=== PATIENT | male | born 1955 | race Caucasian/White ===

== ENCOUNTER → 2016-04-24 | Outpatient (CLI) | payer OTHER ==
[~2016-04-24] VITALS: Ht 188 cm; Wt 113.4 kg
[~2016-04-24] MED LIST: ACCUPRIL40 MG PO; AKWA TEARS EYE15 ML OPHTHALMIC; ATORVASTATIN CA20 MG PO; CARVEDILOL25 MG PO; COLACE100 MG PO; COREG CR20 MG PO; COUMADIN 10MG T10 M1 PO; COUMADIN 5 MG TA5 M1 PO; ENOXAPARIN150 MG/1 M SUBQ; HYDROCODON-ACE1 EAC7 PO; HYDROCODONE-AP1 EAC6 PO; NORFLEX100 MG PO; OXYCODON-ACETA1 EAC1 PO; OXYCODONE-ACET1 EACH PO; QUINAPRIL HCL40 MG PO; TRAMADOL100 MG PO
--- NOTE | ~2016-04-24 | HPC ---
[facility] [address] [place] [address] PAIN MANAGEMENT CONSULTATION Name: MAURICE SIU Room #: REG CLDani CoombsLeannEgdar.#: [id number] Admission: 04/24/16 Attend Phys: Anthony Velasquez MD Discharge: Date of : 57 Report #: [id number] THIS REPORT FOR: //name// CC: Anthony Tsai DO DATE OF SERVICE: 04/24/2016 Followup visit for cervical pain with radiculopathy, right upper extremity and occipital headaches. The patient was last seen on 01/10/2016 when he received an epidural steroid injection at C6-C7. He reports that for nearly 3 months, the pain was gone. His percent pain relief average over 3 months was 85%. He was able returned to most of his normal activities almost pain free. Beginning about 3-4 weeks ago, he began experiencing neck pain once again down the right arm as before into the shoulders, does not extend quite so far. It also radiates up in the occiput. He has an upcoming trip planned and made an appointment to come in today for a repeat epidural injection. It has now been over 3 months since his last injection. MEDICATIONS: Carvedilol, atorvastatin, Quinapril and he has been placed on Coumadin, but that was discontinued a week ago. I do not have an INR, so we cannot proceed today with an epidural injection. He was sent to the laboratory for a stat INR, but unfortunately in our hospital stat is 2 hours. He does not have any pain medication requested that I provided him with some medication and I have agreed to provide him with oxycodone 5/325. I have given him 30 tablets to be taken 1-2 tablets as needed for severe pain. MRI was reviewed, which shows disk bulging at C5-C6 with partial CSF effacement and mild foraminal narrowing there. There is also central disk bulge at C6-C7 without significant central stenosis. At 4-5, there is a broad-based disk bulging with facet hypertrophy causing central ventral CSF effacement and a right neural foraminal narrowing. In addition to his MRI report, I reviewed his x-ray films. He was injected at the level of C7-T1 with excellent spread within the epidural space bilaterally. This was such a helpful injection I would not consider injecting him elsewhere. We would proceed with a repeat injection. PHYSICAL EXAMINATION: He is pleasant, alert and oriented. No signs of depression, anxiety or overmedication. VITAL SIGNS: Blood pressure 143/93, heart rate 84, respirations 16, he is [address] [place] [address] PAIN MANAGEMENT CONSULTATION Name: MAURICE SIU Room #: REG [facility].#: [id number] Admission: 04/24/16 Attend Phys: Anthony Velasquez MD Discharge: Date of : 57 Report #: [id number] feet 2 and 250 pounds with a BMI of 32.1. EXTREMITIES: Examination of the neck reveals good cervical range of motion. Pain is exacerbated by neck extension. Lateral tilt exacerbates pain to the right and also shoots pain up into the occiput and into the shoulder. Pain does not radiate much below the deltoid muscle group in the right arm. Strength is judged to be normal and deltoid, biceps, triceps and mechanical specialist strength on each arm. Sensation is intact. Deep tendon reflexes are trace, biceps, triceps and brachioradialis. Reflexes in the lower extremities are also 1+ at knee and ankle with no evidence of hyperreflexia. IMPRESSION: Cervicalgia with radiculopathy. Pain is recurring in the right upper extremity, does follow C6 distribution. PLAN: Repeat epidural steroid injection today under fluoroscopic guidance. Unfortunately, we were unable to proceed with an injection today due to the delay in receiving his results from [facility]. He was given an appointment for tomorrow and will see my partner, Dr. Robby Iqbal, who has agreed to provide his injection for him. He will call the clinic in the morning if his INR is above 1.5, we will appose bony injection till next week. Potential risks improve benefits of the procedure were explained to the patient, he was anxious to proceed today and will see Dr. Iqbal tomorrow. <ELECTRONICALLY SIGNED> By: Anthony Velasquez MD 05/24/16 1130 1720 0034 Anthony Velasquez MD /nt
[2016-04-24 15:03] VITALS: BP 143/93
[2016-04-24 18:00] LABS: PROTIME 10.2 Seconds (9.3-11.4)
== END | disposition home or self-care (01) ==
LOC: PAIN 07:23
PROVIDERS: Anesthesiology Pain Medicine
DX: M54.12 Radiculopathy, cervical region (principal); M54.81 Occipital neuralgia; I10 Essential (primary) hypertension; F17.210 Nicotine dependence, cigarettes, uncomplicated

== ENCOUNTER → 2016-04-25 | Outpatient (CLI) | payer OTHER ==
[~2016-04-25] VITALS: Ht 188 cm; Wt 113.4 kg
--- NOTE | ~2016-04-25 | HPC ---
[facility] [address] [place] [address] PAIN MANAGEMENT CONSULTATION Name: MAURICE SIU Room #: REG CLDani Qiu#: [id number] Admission: 04/25/16 Attend Phys: Robby Iqbal DO Discharge: Date of : 57 Report #: [id number] THIS REPORT FOR: //name// CC: uQinn Iqbal DATE OF SERVICE: 04/25/2016 HISTORY OF PRESENT ILLNESS: The patient is a very pleasant 60-year-old gentleman being treated for symptomatic cervical radiculopathy; typically, a patient of Dr. Anthony Velasquez. He has done well with the episodic epidural injections. Last injection was about 4 months ago, greater than 50% relief for several months. Pain has begun to recur, primarily right upper neck, posterior occiput, shoulder and paresthesia into the arm. He has been off his Coumadin for several days. INR is 1.0. ASSESSMENT: Symptomatic cervical radiculopathy. PLAN: The patient was told to resume Coumadin tomorrow. Follow up with Dr. Anthony Velasquez as needed. Subjective pain score is 5/10. Vital signs stable. <ELECTRONICALLY SIGNED> By: Robby Iqbal DO 04/28/16 0917 1022 1059 Robby Iqbal, DO /nt
--- NOTE | ~2016-04-25 | O ---
[facility] [place] [address] [place] [address] OPERATIVE REPORT Name: MAURICE SIU Room #: REG CL Dary.#: [id number] Admission: 04/25/16 Attend Phys: Robby Iqbal DO Discharge: Date of : 57 Report #: [id number] THIS REPORT FOR: //name// CC: Quinn Iqbal DATE OF SERVICE: 04/25/2016 NAME OF THE PROCEDURE: Cervical epidural injection under fluoroscopy. ASSESSMENT: Cervical Radiculopathy FLUOROSCOPY TIME: Under 15 seconds. DESCRIPTION OF PROCEDURE: After written and informed consent was obtained including risk of dural puncture, spinal cord trauma, paralysis and increased pain, the patient was taken to the fluoroscopy suite and placed in the prone position, with appropriate abdominal bolstering, neck was flexed, palms under the thighs. Skin was prepped with ChloraPrep. Sterile draping was applied. Skin wheal with 1% Xylocaine was raised. A 22-gauge 3-1/2 inch epidural Tuohy needle was placed via a midline approach at the C7-T1 interspace, advanced under biplanar fluoroscopy using continuous loss of resistance. With appropriate loss of resistance at the expected depth on lateral view, the glass loss of resistance syringe was disconnected. A low volume extension tubing was connected to the needle and a 5 mL syringe. Negative aspiration for cerebrospinal fluid or blood was noted. A 1 mL of Omnipaque was injected which showed spread within the epidural space on biplanar fluoroscopy. This was followed with 80 mg of triamcinolone plus 1 mL of 1.5% preservative Xylocaine. Needle was withdrawn to the interspinous ligament, 0.5 mL of Xylocaine was used to flush the needle. The needle was then completely withdrawn. The area was cleansed. Band-Aid was applied. The patient was allowed to move off the procedure table and ambulated to the recovery room, monitored for an appropriate period of time, discharged in good and stable condition. <ELECTRONICALLY SIGNED> By: Robby Iqbal DO 04/28/16 0917 1022 1204 Robby Iqbal DO /nt
[2016-04-25 10:04] VITALS: BP 137/85
== END ==
LOC: PAIN 07:00
DX: M54.12 Radiculopathy, cervical region (principal); I10 Essential (primary) hypertension; F17.210 Nicotine dependence, cigarettes, uncomplicated

== ENCOUNTER → 2016-08-28 | Outpatient (CLI) | payer OTHER ==
[~2016-08-28] VITALS: Ht 188 cm; Wt 114.5 kg
--- NOTE | ~2016-08-28 | HPC ---
[facility] [place] [address] [place] [address] PAIN MANAGEMENT CONSULTATION Name: MAURICE SIU Room #: REG CLI Dary.#: [id number] Admission: 08/28/16 Attend Phys: Anthony Velasquez MD Discharge: Date of : 57 Report #: [id number] THIS REPORT FOR: //name// CC: Anthony Tsai DATE OF SERVICE: 08/28/2016 Followup visit for cervical radiculopathy on the right. The patient returns to pain clinic today for repeat cervical epidural injection. We provided these injections for him on several occasions, the first was on 01/10/2016, the second on 04/25/[address] Iqbal. I was unable to provide the injection for him today before due to inability to obtain an INR prior to his visit. He is on Coumadin and discontinued it for today's injection 5 days in anticipation. We have done an INR today already which is 1.2. He is okay to go forward with another injection and has been preauthorized. Pain is an 8/10 in his neck, right-sided, behind the shoulder. He describes it as intermittent numbness and tingling also into the right hand that follows the C6-C7 distribution. Pain started at the end of March, he did get some relief with the injection in April. He is not interested in surgery and is hopeful we can continue to provide with the use of pain relief with intermittent injections. PHYSICAL EXAMINATION: On physical exam today, his pain score is an 8. VITAL SIGNS: Blood pressure is 127/78, heart rate is 81. EXTREMITIES: Cervical range of motion is limited in rotational and lateral tilt. He has tenderness in the arm. Deep tendon reflexes are 2+ biceps, triceps and brachioradialis. No hyperreflexia in the lower extremities. 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 IMPRESSION: Cervical radiculopathy on the right. RECOMMENDATIONS: Cervical epidural injection under fluoroscopic guidance. DESCRIPTION OF PROCEDURE: The patient was taken to the fluoroscopic suite for treatment, was placed prone, skin was prepped with ChloraPrep. Skin was anesthetized over the C6-C7 interspace. A 20-gauge Tuohy epidural needle was advanced in the epidural space, the right of midline. No blood or CSF was aspirated. Good loss of resistance was obtained. I then injected 1 mL of Omnipaque, which demonstrated bilateral spread of dye into the epidural space, it was then followed by 3 mL of 0.5% lidocaine mixed with 80 mg of triamcinolone. He tolerated the procedure well and was taken to recovery room for short observation and discharged with a followup visit scheduled on an as needed basis. [address] [address] PAIN MANAGEMENT CONSULTATION Name: SALBADORMAURICE SAN Room #: REG EMILY Qiu#: [id number] Admission: 08/28/16 Attend Phys: Anthony Velasquez MD Discharge: Date of : 57 Report #: [id number] I also provided for him a small prescription of hydrocodone 5/325, #20 tablets to be used as needed for severe breakthrough pain. The opioid crisis was discussed, importance of safeguarding medication discussed. We will keep an eye on his medication. By: 1733 0250 Anthony Velasquez MD /nt
[2016-08-28 11:20] LABS: INR 1.2
[2016-08-28 13:56] VITALS: BP 126/81
== END ==
LOC: PAIN 07-31 12:09
PROVIDERS: Anesthesiology Pain Medicine
DX: M54.12 Radiculopathy, cervical region (principal); I10 Essential (primary) hypertension

== ENCOUNTER → 2016-12-18 | Outpatient (CLI) | payer OTHER ==
[~2016-12-18] VITALS: Ht 188 cm; Wt 117.9 kg
--- NOTE | ~2016-12-18 | HPC ---
[facility] [address] [place] [address] PAIN MANAGEMENT CONSULTATION Name: MAURICE SIU Room #: REG CL MBenji.#: [id number] Admission: 12/18/16 Attend Phys: Anthony Velasquez MD Discharge: Date of : 57 Report #: [id number] THIS REPORT FOR: //name// CC: Anthnoy Tsai DATE OF SERVICE: 12/18/2016 DATE OF SERVICE: 12/18/2016 Followup visit for cervical radiculopathy. The patient returns to pain clinic today. He has had several cervical injections, the first beginning in 12/2015. A second injection was performed on April and 3rd in August. The first 2 injections were very helpful. The last injection had a much shorter duration of response. We have reviewed his radiology findings, which show evidence of degenerative changes at multiple levels. At C5-C6, there is partial effacement and neural foraminal narrowing as well as perineural cyst. This is most likely level of an injury. He would like another epidural injection, understands that surgery may be indicated if he does not show further response. PHYSICAL EXAMINATION: Blood pressure is 114/75, heart rate is 95. He has pain with forward flexion, extension and rotation. He has radiating pain into his right shoulder. It goes into his arm and hands. IMPRESSION: Cervical radiculopathy. PLAN: 1. Cervical epidural injection. He has been off his warfarin now for 5 days with an INR of 1.1. 2. Continue oxycodone 5/325 one half to one tablet at bedtime. PROCEDURE: Cervical epidural steroid injection under fluoroscopic guidance. He was taken to fluoroscopic suite, placed prone, skin was prepped with ChloraPrep. Skin was anesthetized to the right of midline and a 25-gauge needle advanced into the epidural space in first attempt using loss of resistance. No blood or CSF was aspirated. 1 mL of Omnipaque was injected and epidural spread was identified along the right recess extending cephalad. It was then followed by 3 mL of 0.5% lidocaine mixed with 80 mg of triamcinolone. Pain was reduced to a 2 [facility] [address] [place] [address] PAIN MANAGEMENT CONSULTATION Name: SALBADORMAURICE SAN Room #: REG CLI [facility].#: [id number] Admission: 12/18/16 Attend Phys: Anthony Velasquez MD Discharge: Date of : 57 Report #: [id number] in the recovery room. He was discharged thereafter with followup visit as needed. By: 0526 1141 Anthony Velasquez MD /nt
[2016-12-18 11:57] LABS: INR 1.1; PROTIME 11.1 Seconds (9.3-11.4)
[2016-12-18 12:58] VITALS: BP 136/86
== END ==
LOC: PAIN 07:06
PROVIDERS: Anesthesiology Pain Medicine
DX: M54.12 Radiculopathy, cervical region (principal); I10 Essential (primary) hypertension; Z98.890 Other specified postprocedural states; Z88.8 Allergy status to other drugs, medicaments and biological substances; Z79.899 Other long term (current) drug therapy; Z79.01 Long term (current) use of anticoagulants

== ENCOUNTER → 2017-04-02 | Outpatient (CLI) | payer OTHER | LOC: ULTRA 08:46 | DX: E04.1 Nontoxic single thyroid nodule (principal) ==

== ENCOUNTER → 2017-05-21 | Outpatient (CLI) | payer OTHER ==
[~2017-05-21] VITALS: Ht 188 cm; Wt 118.5 kg
[~2017-05-21] MED LIST changes: +CHLORTHALIDONE25 MG PO; +CYCLOBENZAPRINE10 MG PO
--- NOTE | ~2017-05-21 | HPC ---
[facility] [address] [place] [address] PAIN MANAGEMENT CONSULTATION Name: MAURICE SIU Room #: REG CLDani CoombsLeannEdgar.#: [id number] Admission: 05/21/17 Attend Phys: Anthony Velasquez MD Discharge: Date of : 57 Report #: [id number] THIS REPORT FOR: //name// CC: Anthony Tsai DO DATE OF SERVICE: 05/21/2017 Followup visit for cervical radiculopathy. I last saw the patient in December. He received a cervical epidural injection on December 18 and had an outstanding response. He is here today for another epidural injection. He has had consistent response with each of these injections. We reviewed his MRI scan again today prior to injection. His previous injection was performed at C6-C7 and C7-T1. He has multilevel degenerative disk disease with bulging disks. His symptoms, however, are consistent with right cervical radiculopathy. Dr. Faustin performed his last injection. MEDICATIONS: Reviewed and reconciled. I have agreed to provide him with a very small amount of oxycodone 5/325 only #30 tablets. He uses it sparingly over the course of many months. PHYSICAL EXAMINATION: GENERAL: Pleasant, alert and oriented, without signs of overmedication, depression or anxiety. VITAL SIGNS: His blood pressure is 146/82, heart rate is 80, respirations are 22 today. Oxygen saturations 98%. MUSCULOSKELETAL: Examination of the neck reveals good range of motion. He has tenderness there. Deep tendon reflexes are 2+ biceps, triceps and brachioradialis. Deep tendon reflexes in the lower extremities are 2-3+, although he has a mild degree of hyperreflexia that is not severe. IMPRESSION: Cervical radiculopathy on the right. RECOMMENDATIONS: Cervical epidural steroid injection, C6-C7 under fluoroscopic guidance. DESCRIPTION OF PROCEDURE: He was taken to the fluoroscopic suite, placed prone, skin prepped with ChloraPrep. Skin anesthetized over C6-C7. A 20-gauge Tuohy epidural needle advanced in first attempt in the epidural space with loss of resistance technique. There was no blood or CSF aspirated. Omnipaque 1 mL was [address] [address] PAIN MANAGEMENT CONSULTATION Name: MAURICE SIU JASWINDER Room #: REG Dani Foote.#: [id number] Admission: 05/21/17 Attend Phys: Anthony Velasquez MD Discharge: Date of : 57 Report #: [id number] injected. Good spread of dye observed into the epidural space, was followed then by 3 mL of 0.5% lidocaine mixed with 80 mg of triamcinolone. He tolerated the procedure well and was observed for 45 minutes and discharged. Followup visit planned as needed. He was instructed to restart his Coumadin tomorrow. Prescription provided. <ELECTRONICALLY SIGNED> By: Anthony Velasquez MD 06/10/17 1640 1707 0053 Anthony Velasquez MD /idalmis
[2017-05-21 10:24] LABS: INR 1.1; PROTIME 10.9 Seconds (9.3-11.4)
[2017-05-21 13:06] VITALS: BP 146/84
== END | disposition home or self-care (01) ==
LOC: PAIN 06:56
PROVIDERS: Anesthesiology Pain Medicine
DX: M54.12 Radiculopathy, cervical region (principal); F32.9 Major depressive disorder, single episode, unspecified; F41.9 Anxiety disorder, unspecified; F17.210 Nicotine dependence, cigarettes, uncomplicated; Z79.899 Other long term (current) drug therapy

== ENCOUNTER → 2017-09-21 | Outpatient (CLI) | payer OTHER ==
[~2017-09-21] VITALS: Ht 188 cm; Wt 125.4 kg
[~2017-09-21] MED LIST changes: -CHLORTHALIDONE25 MG PO; -CYCLOBENZAPRINE10 MG PO
--- NOTE | ~2017-09-21 | HPC ---
[facility] [address] [place] [address] PAIN MANAGEMENT CONSULTATION Name: MAURICE SIU Room #: REG CLI MalvinLeannEdgar.#: [id number] Admission: 09/21/17 Attend Phys: Anthony Velasquez MD Discharge: Date of : 57 Report #: [id number] THIS REPORT FOR: //name// CC: Anthony Tsai DO DATE OF SERVICE: 09/21/2017 Followup visit for cervical radiculopathy. The patient returns to the pain clinic today once again for symptoms of cervical radiculopathy. He has pain that follows mostly a C6 through T1 distribution. He has pain that radiates into the anterior shoulder and some into the anterior chest all on the right. Other pains radiate down into the C6 distribution. He has had good response to cervical epidural injections with duration response in the last month. We are hopeful to repeat the injection today providing him again with symptomatic relief. He would like to avoid surgery. He works in [employer]. We have had lots of discussions about the use of opioids in treatment of chronic intractable pain. He has been using a little bit of oxycodone when the pain is severe, but I provide him with only 30 tablets. If he takes the maximum amount, it would be 2 per day. Many days, he does not take a single pill and other days only one. His MME is overall less than 10. We discussed the CDC guidelines, safety of medication, avoiding concerns of addiction and proper management. PHYSICAL EXAMINATION: Today, he is pleasant, alert and oriented without signs of depression, anxiety or overmedication. His blood pressure is 146/84, heart rate 80, BMI is 33.5. He has pain with neck extension and lateral tilt. He has a negative Spurling's. He has pain that radiates into the anterior chest, arm and into the hand. He has no pain with internal and external rotation of the shoulder. He has mild tenderness overlying the spinous processes. Deep tendon reflexes are 2+ in the upper extremities bilaterally, biceps, triceps and brachioradialis. He has mild hyperreflexia in the lower extremities, 2+ to 3+. IMPRESSION: Cervical radiculopathy on the right C6 through T1 distribution. Epidural steroid injection under fluoroscopic guidance, C7-T1. PROCEDURE: He was taken to the fluoroscopic suite, placed prone, skin prepped with ChloraPrep. Skin anesthetized over C7-T1. A 20-gauge Tuohy epidural needle advanced in first attempt in the epidural space with loss of resistance technique. There was no blood or CSF aspirated. 1 mL of Omnipaque was injected. Good spread of dye observed in the epidural space. This was followed by 3 mL of 0.5% lidocaine mixed with 80 mg of triamcinolone. He tolerated the [facility] [address] [place] [address] PAIN MANAGEMENT CONSULTATION Name: MAURICE SIU Room #: REG [facility] Uyen#: [id number] Admission: 09/21/17 Attend Phys: Anthony Velasquez MD Discharge: Date of : 57 Report #: [id number] procedure well and was observed for 45 minutes and discharged. Followup visit planned in the pain clinic on an as needed basis. He is given a prescription for oxycodone 5/325, 30 tablets. By: 1406 2332 Anthony Velasquez MD /nt
[2017-09-21 12:04] LABS: PROTIME 10.7 Seconds (9.3-11.4)
[2017-09-21 13:09] VITALS: BP 112/77
== END | disposition home or self-care (01) ==
LOC: PAIN 07:25
PROVIDERS: Anesthesiology Pain Medicine
DX: M54.12 Radiculopathy, cervical region (principal); G89.29 Other chronic pain; I10 Essential (primary) hypertension; F17.210 Nicotine dependence, cigarettes, uncomplicated; Z88.8 Allergy status to other drugs, medicaments and biological substances; Z79.891 Long term (current) use of opiate analgesic; Z79.01 Long term (current) use of anticoagulants; Z98.890 Other specified postprocedural states

== ENCOUNTER → 2018-02-04 | Outpatient (CLI) | payer OTHER ==
[~2018-02-04] VITALS: Ht 188 cm; Wt 117.9 kg
[~2018-02-04] MED LIST changes: +CHLORTHALIDONE25 MG PO; +CYCLOBENZAPRINE10 MG PO
--- NOTE | ~2018-02-04 | HPC ---
[facility] [place] [address] [place] [address] PAIN MANAGEMENT CONSULTATION Name: MAURICE SIU Room #: REG CLDani CoombsBenji.#: [id number] Admission: 02/04/18 Attend Phys: Anthony Velasquez MD Discharge: Date of : 57 Report #: [id number] THIS REPORT FOR: //name// CC: Anthony Gomez DATE OF SERVICE: 02/04/2018 REASON FOR VISIT: Followup visit for cervical radiculopathy. HISTORY OF PRESENT ILLNESS: The patient returns to pain clinic today with exacerbation of his cervical radicular symptoms. He has generally responded very well to previous epidural injections. His pain is in his right arm radiating all the way to his hand. Follows a radicular pattern. He has noticed worsening of his pain with changes in the barometric pressure, particularly lowering. The speed of drop also seems to make a difference. He had no other changes in his health history since his last visit here. He is on Coumadin and discontinued it knowingly in anticipation of an injection and received INR of 1.0 today, so he should be okay to go forward. We reviewed the procedure in some detail. We have discussed the positioning of the needle at previous injections which have been helpful. We have talked about other wellness behaviors. He continues to smoke half pack a day and is encouraged to discontinue the use of tobacco, which contributes to pain as well as other issues, particularly vascular issues for which he is taking Coumadin. PHYSICAL EXAMINATION: Reveals a very pleasant gentleman. He is not in any acute distress today. His blood pressure is 106/69, heart rate 91, respirations 16, O2 sat 96, BMI 33.4. Pain intensity is 7/10. He has pain with forward flexion and extension of his neck. Extension reproduces radiating pain into his right arm as far as the hand. It tends to follow the C7 distribution, more so than C6. He has mild numbness in the hands as well. No focal weakness is noted. In the lower extremities, there is no evidence of hyperreflexia to suggest cord compression. IMPRESSION: Cervicalgia with radiculopathy, right upper extremity and C6-C7 distribution. RECOMMENDATIONS: Repeat cervical epidural injections today under fluoroscopic guidance, C6-C7. DESCRIPTION OF PROCEDURE: He was taken to fluoroscopic suite, placed prone. Skin prepped with ChloraPrep, skin anesthetized over C6-C7. A 20-gauge [address] [address] PAIN MANAGEMENT CONSULTATION Name: MAURICE SIU Room #: REG CLI Uyen#: [id number] Admission: 02/04/18 Attend Phys: Anthony Velasquez MD Discharge: Date of : 57 Report #: [id number] epidural needle advanced at first attempt in the epidural space with loss of resistance technique. There was no blood or CSF aspirated. 1 mL of Omnipaque was injected with good spread of dye observed in the epidural space, was followed by 3 mL of 0.5% lidocaine mixed with 80 mg of triamcinolone. He tolerated the procedure well and was observed for 45 minutes and discharged. Follow up as needed. By: 1625 1145 Anthony Velasquez MD /nt
[2018-02-04 11:23] LABS: PROTIME 10.7 Seconds (9.3-11.4)
[2018-02-04 12:46] VITALS: BP 106/69
== END | disposition home or self-care (01) ==
LOC: PAIN 06:55
PROVIDERS: Anesthesiology Pain Medicine
DX: M54.12 Radiculopathy, cervical region (principal); I10 Essential (primary) hypertension; F17.210 Nicotine dependence, cigarettes, uncomplicated; Z79.01 Long term (current) use of anticoagulants; Z88.8 Allergy status to other drugs, medicaments and biological substances; Z79.899 Other long term (current) drug therapy

== ENCOUNTER → 2018-06-14 | Outpatient (CLI) | payer OTHER ==
[~2018-06-14] VITALS: Ht 188 cm; Wt 118.4 kg
--- NOTE | ~2018-06-14 | HPC ---
[facility] [address] [place] [address] PAIN MANAGEMENT CONSULTATION Name: MAURICE SIU Room #: REG CLDani Uyen#: [id number] Admission: 06/14/18 ������������������ Attend Phys: Anthony Velasquez MD Discharge: ������������������ Date of : 57 Report #: [id number] THIS REPORT FOR: //name// CC: Anthony Hector DATE OF SERVICE: 06/14/2018 Followup visit for cervical radiculopathy, chronic and recurrent. The patient returns to pain clinic today for cervical epidural injection. His last injection was on 02/04/2018. It has been a little bit shorter interval for him. Cold weather may be making a difference. He complains of pain in his neck with radiation down into his upper back and also into his right shoulder and right arm. Pain gradually has recurred over the last 5 months. Pain score is a 7-8/10 with numbness and tingling. PHYSICAL EXAMINATION: Blood pressure 107/62, heart rate 84, respirations 16, BMI 33.5. He has pain with forward flexion of the neck and reduced range of motion in rotation and lateral tilt. Stock Replenisher and biceps, triceps strength are all within normal limits with no asymmetry. Sensation is diminished slightly in the C6-C7 distribution. His most recent MRI is about 3 years old. We talked about possibly repeating it in the future, but for now given his good response to current treatments without advance of his symptoms, I think we will go ahead and continue with epidural injections and another office visit we will wait to see if we need to repeat the MRI. IMPRESSION: Cervicalgia with radiculopathy, right upper extremity, C6-C7 distribution. PROCEDURE: Cervical epidural injection C6-C7 under fluoroscopic guidance. DESCRIPTION OF PROCEDURE: The patient was taken to fluoroscopic suite, placed prone, skin prepped with ChloraPrep. Skin anesthetized over C6-C7. A 20-gauge Tuohy epidural needle advanced into the epidural space with loss of resistance technique. There was no blood or CSF aspirated. 1 mL of Omnipaque injected, good spread of dye observed in the epidural space followed by 3 mL of 0.5% lidocaine mixed with 80 mg of triamcinolone. He tolerated the procedure well and was observed for 45 minutes and discharged. Follow up as needed. ��������������������������������������������� ���������������������������������������� By: ��������������������������������������������� [id number] Anthony Velasquez MD /nt
[2018-06-14 10:06] LABS: INR 1.1; PROTIME 11.3 Seconds (9.3-11.4)
[2018-06-14 12:35] VITALS: BP 107/62
--- NOTE | 2018-06-14 12:56 | NUR ---
Pain Clinic Assessment: 1. History of Osteoarthritis: Left Lower Extremity Right Lower Extremity History of Rheumatoid Arthritis: Not Applicable 2. Height: 6 ft. 2 in. 188.0 cm. Weight: 261.0 lb. oz. 118.389 kg. Patient's BMI: 33.5 3. Vital Signs: BP: 107/62 Pulse: 84 Resp: 16 Temp: 02 Sat: 97 ECG Mon: 4. Pain Intensity: 7-8 5. Fall Risk: Dizziness: N Needs help standing or walking: N Fallen in the last 3 months: N Fall risk comments: 6. Patient on Blood Thinner: Warfarin (Coumadin) 7. History of Hypertension: Y 8. Opioid Therapy greater than 6 weeks: Y Opiate Contract Signed: 09/21/17 9. Risk Assessment Tool Provided: LOW RISK 0/3 10. Functional Assessment Tool: 11. Recreational Drug Use: Never Drug Type: Tobacco Use: Current Every Day Smoker Tobacco Type: Cigarettes Amount or Packs/day: 1/2 How Many Years: Alcohol Use: No Frequency: Quant:
== END | disposition home or self-care (01) ==
LOC: PAIN 07:10
PROVIDERS: Anesthesiology Pain Medicine
DX: M54.12 Radiculopathy, cervical region (principal); G89.29 Other chronic pain; I10 Essential (primary) hypertension; F17.210 Nicotine dependence, cigarettes, uncomplicated; Z79.01 Long term (current) use of anticoagulants; Z88.8 Allergy status to other drugs, medicaments and biological substances; Z79.899 Other long term (current) drug therapy

== ENCOUNTER → 2018-11-08 | Outpatient (CLI) | payer OTHER ==
[~2018-11-08] VITALS: Ht 188 cm; Wt 115.5 kg
[~2018-11-08] MED LIST changes: +FINASTERIDE5 MG PO
--- NOTE | ~2018-11-08 | HPC ---
[facility] [address] [place] [address] PAIN MANAGEMENT CONSULTATION Name: MAURICE SIU Room #: REG CLI Dary.#: [id number] Admission: 11/08/18 ������������������ Attend Phys: Anthony Velasquez MD Discharge: ������������������ Date of : 57 Report #: [id number] THIS REPORT FOR: //name// CC: Anthony Tsai DO DATE OF SERVICE: 11/08/2018 CHIEF COMPLAINT: Followup visit for cervical radiculopathy. The patient returns to pain clinic today for cervical epidural injection. He has responded nicely to injections. He complains today of pain in his neck that radiates into his right shoulder and down the right arm in a radicular pattern. Pain relief has generally been noted quickly after an epidural injection has been sustained for many months. We have not done a recent MRI, but will consider if the pain begins increasing or if he begins showing less response to epidural injections. MEDICATIONS: Oxycodone 5/325 one tablet taken periodically for severe pain, he does not take it daily. Coumadin which was discontinued in anticipation of injection with an INR of 1.1. Quinapril, atorvastatin, carvedilol, chlorthalidone. ALLERGIES: AMLODIPINE, TRAMADOL. PHYSICAL EXAMINATION: GENERAL: Very pleasant, outgoing 63-year-old gentleman. VITAL SIGNS: His blood pressure is 102/50, heart rate 86, respirations 14. MUSCULOSKELETAL: Cervical range of motion is limited in extension, which reproduces symptoms radiating into the right arm. There are tension signs. He has a positive Spurling's. CHEST: Clear. CARDIAC: Rhythm is regular. IMPRESSION: Cervical radiculopathy, right upper extremity C6-C7 distribution chronic. This is responsive to cervical epidural injections. PROCEDURE: Cervical epidural injection under fluoroscopic guidance. PROCEDURE: After informed consent, he was taken to the fluoroscopic suite for treatment, placed prone, skin prepped with ChloraPrep. Skin anesthetized over the C6-C7 interspace and a 20-gauge Tuohy epidural needle advanced first attempt in the epidural space with loss of resistance. There was no blood or CSF aspirated. A 1 mL of Omnipaque injected. Good spread of dye observed into the epidural space, followed by 3 mL of 0.5% lidocaine mixed with [address] mg [address] [address] PAIN MANAGEMENT CONSULTATION Name: MAURICE SIU JASWINDER Room #: REG [facility] Uyen#: [id number] Admission: 11/08/18 ������������������ Attend Phys: Anthony Velasquez MD Discharge: ������������������ Date of : 57 Report #: [id number] triamcinolone. He tolerated the procedure well and was observed for 45 minutes and discharged. Followup visit planned on an as-needed basis. A prescription for 30 oxycodone tablets was provided under terms of our written opioid agreement. He will carefully safeguard these medications as we have agreed. ��������������������������������������������� ���������������������������������������� By: ��������������������������������������������� 1827 [id number] Anthony Velasquez MD /idalmis
[2018-11-08 11:05] LABS: INR 1.1; PROTIME 11.4 Seconds (9.3-11.4)
[2018-11-08 13:31] VITALS: BP 102/50
--- NOTE | 2018-11-08 13:51 | NUR ---
Pain Clinic Assessment: 1. History of Osteoarthritis: Left Lower Extremity Right Lower Extremity History of Rheumatoid Arthritis: Not Applicable 2. Height: 6 ft. 2 in. 188.0 cm. Weight: 254.6 lb. oz. 115.486 kg. Patient's BMI: 32.7 3. Vital Signs: BP: 102/50 Pulse: 86 Resp: 14 Temp: 02 Sat: 97 ECG Mon: 4. Pain Intensity: 9 5. Fall Risk: Dizziness: N Needs help standing or walking: N Fallen in the last 3 months: N Fall risk comments: 6. Patient on Blood Thinner: Warfarin (Coumadin) 7. History of Hypertension: Y 8. Opioid Therapy greater than 6 weeks: Y Opiate Contract Signed: 09/21/17 9. Risk Assessment Tool Provided: LOW RISK 0/3 10. Functional Assessment Tool: 11. Recreational Drug Use: Never Drug Type: Tobacco Use: Current Every Day Smoker Tobacco Type: Cigarettes Amount or Packs/day: 1/2 PACK DAY How Many Years: 30 Alcohol Use: No Frequency: Quant:
== END | disposition home or self-care (01) ==
LOC: PAIN 06:58
PROVIDERS: Anesthesiology Pain Medicine
DX: M54.12 Radiculopathy, cervical region (principal); G89.29 Other chronic pain; F17.210 Nicotine dependence, cigarettes, uncomplicated; Z88.8 Allergy status to other drugs, medicaments and biological substances; Z79.891 Long term (current) use of opiate analgesic; Z79.899 Other long term (current) drug therapy; Z98.890 Other specified postprocedural states; Z79.01 Long term (current) use of anticoagulants

== ENCOUNTER → 2019-03-31 | Outpatient (CLI) | payer OTHER ==
[~2019-03-31] VITALS: Ht 188 cm; Wt 111.0 kg
[2019-03-31 10:34] LABS: INR 1.1; PROTIME 11.2 Seconds (9.3-11.4)
[2019-03-31 14:14] VITALS: BP 94/62
--- NOTE | 2019-03-31 14:31 | NUR ---
Pain Clinic Assessment: 1. History of Osteoarthritis: Left Lower Extremity Right Lower Extremity History of Rheumatoid Arthritis: Not Applicable 2. Height: 6 ft. 2 in. 188.0 cm. Weight: 244.6 lb. oz. 110.950 kg. Patient's BMI: 31.4 3. Vital Signs: BP: 94/62 Pulse: 79 Resp: 16 Temp: 02 Sat: 97 ECG Mon: 4. Pain Intensity: 7 5. Fall Risk: Dizziness: N Needs help standing or walking: N Fallen in the last 3 months: N Fall risk comments: 6. Patient on Blood Thinner: Warfarin (Coumadin) 7. History of Hypertension: Y 8. Opioid Therapy greater than 6 weeks: Y Opiate Contract Signed: 09/21/17 9. Risk Assessment Tool Provided: LOW RISK 0/3 10. Functional Assessment Tool: 11. Recreational Drug Use: Never Drug Type: Tobacco Use: Current Every Day Smoker Tobacco Type: Cigarettes Amount or Packs/day: How Many Years: Alcohol Use: No Frequency: Quant:
--- NOTE | 2019-04-11 12:21 | HPC ---
[facility] [address] [place] [address] PAIN MANAGEMENT CONSULTATION Name: MAURICE SIU Room #: REG CLI Dary.#: [id number] Admission: 03/31/19 Attend Phys: Anthony Velasquez MD Discharge: Date of : 57 Report #: [id number] THIS REPORT FOR: //name// CC: Anthony Hector DATE OF SERVICE: 03/31/2019 Followup visit for cervical radiculopathy. The patient returns to pain clinic today for cervical epidural injection. The record will reflect that he has received periodic injections dating back to 2016, always receiving some improvement. He reports today complaining to us that the pain has returned. It is once again in his neck, radiates through his right shoulder down the right arm and into his right hand. He is having difficulty with gripping things due to weakness. Typically after an injection, he usually gets about 5 minutes of pain relief. He does not take much pain medicine, but he is quite concerned about it. I have reviewed his use on the prescription drug monitoring program information. It does show that he has had several prescribers. It also shows that 18 months ago, he received a large prescription for alprazolam which Dr. Pathak gave him from a Cardiology standpoint to help reduce stress hoping that this would be helpful for cardiac issues. He did not like them, did not take them on a regular basis and they were the lowest dose of 0.25. Nonetheless, this led to a long discussion regarding the use of opioids and also the inclusion of alprazolam, a benzodiazepine on his PDMP. Other than the prescriptions that I provide for him, oxycodone 5/325 about every 6 months, 30 tablets. He has received a prescription from Dr. Luis E Hector following surgery and also a prescription from Dr. Darci Tsai when he suffered with shingles in July. He is on an opioid agreement with our clinic. He has acknowledged that he took these medications and also communicated this with our clinic. He does not appear to have any issues related to misuse or abuse or drug addiction. He has completed an opioid risk tool and his score is 0. As long as we are aware of these other prescriptions and they are not being done on a chronic basis and he is using that for a legitimate purpose, I told him that I was not overly concerned. We performed urine drug screens in the past and there are no unexpected findings. Today, his biggest problem is pain in his neck that radiates down his arm as described. We will repeat the injection. He discontinued his Coumadin and his INR is 1.1. PQRS REVIEW: He has some arthritis in his lower extremities, hips and knees. [address] [address] PAIN MANAGEMENT CONSULTATION Name: MAURICE SIU Room #: REG CLDani Foote.#: [id number] Admission: 03/31/19 Attend Phys: Anthony Velasquez MD Discharge: Date of : 57 Report #: [id number] BMI is 31.4 and his blood pressure is 94/62, heart rate 79. Pain intensity is 7/10 today. He is not considered a fall risk. He does have hypertension and is under treatment. Opioid risk tool was discussed above. He also has a 0 score for opioid risk tool. He continues to smoke and was counseled to not use alcohol. PHYSICAL EXAMINATION: Cervicalgia with pain in the neck. Positive Spurling's test. Tenderness across the cervical segment. Weakness radiating into the right arm. Deep tendon reflexes are diminished in the lower extremities. IMPRESSION: Cervical radiculopathy, C6-C7. RECOMMENDATION: Repeat cervical epidural injection under fluoroscopic guidance. DESCRIPTION OF PROCEDURE: He was taken to fluoroscopic suite, placed prone, skin prepped with ChloraPrep. Skin anesthetized over C7-T1. A 20-gauge Tuohy epidural needle advanced on the first attempt in the epidural space with loss of resistance. There was no blood or CSF aspirated. A 1 mL of Omnipaque injected and good spread of dye observed into the epidural space. This was then followed by 3 mL of 0.5% lidocaine mixed with 80 mg of triamcinolone and he tolerated the procedure well. There were no complications. Followup visit planned on an as needed basis in the future for future injections and I did renew his medications for him electronically. A #30 oxycodone 5/325 to be taken only for severe pain. This typically again lasts about 6 months. <ELECTRONICALLY SIGNED> By: Anthony Velasquez MD 04/11/19 1221 [id number] Anthony Velasquez MD /nt
== END | disposition home or self-care (01) ==
LOC: PAIN 07:05
PROVIDERS: Anesthesiology Pain Medicine
DX: M54.12 Radiculopathy, cervical region (principal); M54.2 Cervicalgia; I10 Essential (primary) hypertension; M19.90 Unspecified osteoarthritis, unspecified site; F17.210 Nicotine dependence, cigarettes, uncomplicated; Z98.890 Other specified postprocedural states; Z79.899 Other long term (current) drug therapy; Z88.8 Allergy status to other drugs, medicaments and biological substances

== ENCOUNTER → 2019-04-01 | Outpatient (CLI) | payer OTHER | LOC: ULTRA 14:51 | DX: E04.2 Nontoxic multinodular goiter (principal) ==

== ENCOUNTER → 2019-08-11 | Outpatient (CLI) | payer BC, OTHER ==
[~2019-08-11] VITALS: Ht 188 cm; Wt 112.5 kg
--- NOTE | ~2019-08-11 | HPC ---
[facility] [address] [place] [address] PAIN MANAGEMENT CONSULTATION Name: MAURICE SIU Room #: REG EMILY Uyen#: [id number] Admission: 08/11/19 Attend Phys: Anthony Velasquez MD Discharge: Date of : 57 Report #: [id number] THIS REPORT FOR: cc: Luis E Hector MD, Scott R. MD Morgan, Richard L. MD ~ CC: Anthony Hector MD DATE OF SERVICE: 08/11/2019 Followup visit for chronic cervical radiculopathy. The patient is here today to discuss future injection and also to review his medications. He fell while he was in session in [place] and went to the Emergency Room. The doctor there provided him with a prescription for hydrocodone 5/325, 12 tablets. He is very conscientious about his use of opioid medication given the opioid crisis. His last prescription was provided in our clinic on 03/31/2019 and filled on the same day for oxycodone 5/325, 30 tablets. It has been 150 days since his last refill. He basically takes an oxycodone when the pain is very severe and that calculates out to about one tablet every 5 days. His MME was less than 2. In the past, he was taking alprazolam 0.[address] Pathak. He used this to help with sleep, stress and anxiety, but after we had talked about the opioid and the benzodiazepine interaction ____ completely stopped and has not taken it since. We had a lengthy discussion today about the importance of dosing and proper use of medications to prevent injury or harm. It is my opinion that his doses of medication are so low that if he takes them as prescribed that his risk of overdose is extremely low. He is on an opioid agreement. We reviewed the terms of that agreement. He has completed the PQRS review as well. He has some osteoarthritis of the lower extremity as well as spondylosis of the cervical and lumbar spine. His BMI is 31.8, blood pressure 106/70, heart rate 87, pain intensity 7-8/10. He has not fallen. He is on Coumadin, needs to be off of it in anticipation of an injection. He is treated for hypertension, and I have reviewed all medications. His opioid agreement was signed in 2018 and discussed above. He is at low risk for addiction by the opioid risk assessment tool, which scores 0. He continues to smoke and was counseled. He does not use alcohol. PHYSICAL EXAMINATION: GENERAL: Pleasant, alert and oriented. [address] [address] PAIN MANAGEMENT CONSULTATION Name: MAURICE SIU Room #: REG [facility].#: [id number] Admission: 08/11/19 Attend Phys: Anthony Velasquez MD Discharge: Date of : 57 Report #: [id number] VITAL SIGNS: As noted above. Moves independently without difficulty. His gait is normal without spasticity. MUSCULOSKELETAL: Cervical range of motion, increased pain and extension reproducing some radicular symptoms continuous into the right arm as we have seen before. He has a positive Spurling sign. Strength and sensation are normal. IMPRESSION: Chronic cervical radiculopathy, right C6-C7 distribution, which has been very responsive since epidural injections in the past. 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 PLAN: I will renew a prescription for 30 of his oxycodone, which he will use carefully and cautiously as described. Followup visit for cervical epidural injection in 1-2 weeks. We will monitor COVID-19 carefully as we plan the injection. By: 1159 1434 Anthony Velasquez MD /nt
[2019-08-11 10:47] VITALS: BP 106/70
--- NOTE | 2019-08-11 10:51 | NUR ---
Pain Clinic Assessment: 1. History of Osteoarthritis: Left Lower Extremity Right Lower Extremity History of Rheumatoid Arthritis: Not Applicable 2. Height: 6 ft. 2 in. 188.0 cm. Weight: 248.0 lb. oz. 112.492 kg. Patient's BMI: 31.8 3. Vital Signs: BP: 106/70 Pulse: 87 Resp: 16 Temp: 02 Sat: 96 ECG Mon: 4. Pain Intensity: 7-8 5. Fall Risk: Dizziness: N Needs help standing or walking: N Fallen in the last 3 months: N Fall risk comments: 6. Patient on Blood Thinner: Warfarin (Coumadin) 7. History of Hypertension: Y 8. Opioid Therapy greater than 6 weeks: Y Opiate Contract Signed: 09/21/17 9. Risk Assessment Tool Provided: LOW RISK 0/3 10. Functional Assessment Tool: 11. Recreational Drug Use: Never Drug Type: Tobacco Use: Current Every Day Smoker Tobacco Type: Cigarettes Amount or Packs/day: How Many Years: Alcohol Use: No Frequency: Quant:
--- NOTE | 2019-08-11 10:52 | NUR ---
08/11/2019 MEDICATIONS RECONCILED/NO LIST SUPPLIED
== END ==
LOC: PAIN 07:19
DX: M54.12 Radiculopathy, cervical region (principal); G96.19 Other disorders of meninges, not elsewhere classified; M48.02 Spinal stenosis, cervical region; F11.20 Opioid dependence, uncomplicated; Z79.899 Other long term (current) drug therapy

== ENCOUNTER → 2019-08-22 | Outpatient (CLI) | payer BC, OTHER ==
[~2019-08-22] VITALS: Ht 188 cm; Wt 112.5 kg
[2019-08-22 11:41] LABS: INR 1.1; PROTIME 11.5 Seconds (9.3-11.4)
--- NOTE | 2019-08-22 15:17 | NUR ---
Pain Clinic Assessment: 1. History of Osteoarthritis: Left Lower Extremity Right Lower Extremity History of Rheumatoid Arthritis: Not Applicable 2. Height: ft. in. cm. Weight: lb. oz. kg. Patient's BMI: 3. Vital Signs: BP: Pulse: Resp: Temp: 02 Sat: ECG Mon: 4. Pain Intensity: 8 5. Fall Risk: Dizziness: Needs help standing or walking: Fallen in the last 3 months: Fall risk comments: 6. Patient on Blood Thinner: Warfarin (Coumadin) 7. History of Hypertension: Y 8. Opioid Therapy greater than 6 weeks: Y Opiate Contract Signed: 09/21/17 9. Risk Assessment Tool Provided: LOW RISK 0/3 10. Functional Assessment Tool: 11. Recreational Drug Use: Never Drug Type: Tobacco Use: Current Every Day Smoker Tobacco Type: Amount or Packs/day: How Many Years: Alcohol Use: No Frequency: Quant:
[2019-08-22 15:22] VITALS: BP 101/66
--- NOTE | 2019-08-23 18:18 | HPC ---
[facility] [place] [address] [address] [place] [address] PAIN MANAGEMENT CONSULTATION Name: MAURICE SIU Room #: REG CLDani Uyen#: [id number] Admission: 08/22/19 Attend Phys: Anthony Velasquez MD Discharge: Date of : 57 Report #: [id number] THIS REPORT FOR: cc: Luis E Hector MD, Scott R. MD Morgan, Richard L. MD ~ CC: Anthony Hector MD DATE OF SERVICE: 08/22/2019 Followup visit for cervical radiculopathy. The patient returns today for cervical epidural injection. He has had 1-3 injections per year, dating back to 2016. I saw him in consultation for this injection on 08/11/2019. He has discontinued his blood thinner in anticipation of the injection. We have reviewed the procedure, risks and benefits. He is anxious to proceed. DIAGNOSIS: Cervical radiculopathy, chronic, right upper extremity involving C6-C7. PROCEDURE: Cervical epidural injection. After informed consent, he was taken to the fluoroscopic suite, placed prone, skin prepped with ChloraPrep. Skin anesthetized over C6-C7 interspace. Using biplanar fluoroscopic views, I advanced needle into the epidural space using loss of resistance technique. There was no blood or CSF aspirated. A 1 mL of Omnipaque was injected and excellent spread of dye observed in the epidural space, was followed by 3 mL of 0.5% lidocaine mixed with 60 mg of triamcinolone. He tolerated the procedure well and was observed for 45 minutes and discharged. Followup visit planned as needed. No medications ordered at today's visit. <ELECTRONICALLY SIGNED> By: Anthony Velasquez MD 08/23/19 1818 1643 [id number] Anthony Velasquez MD /nt
== END | disposition home or self-care (01) ==
LOC: PAIN 06:58 → LAB 06:58
PROVIDERS: Anesthesiology Pain Medicine
DX: M54.12 Radiculopathy, cervical region (principal); I10 Essential (primary) hypertension; F17.210 Nicotine dependence, cigarettes, uncomplicated; Z98.890 Other specified postprocedural states; Z79.899 Other long term (current) drug therapy; Z79.01 Long term (current) use of anticoagulants; Z88.8 Allergy status to other drugs, medicaments and biological substances

== ENCOUNTER → 2019-10-07 | Outpatient (CLI) | payer BC, OTHER | LOC: SJCVCIMAG 10:00 | PROVIDERS: ATTEND Internal Medicine Cardiovascular Disease | DX: I77.811 Abdominal aortic ectasia (principal) ==

== ENCOUNTER → 2020-01-05 | Outpatient (CLI) | payer BC, OTHER ==
[~2020-01-05] VITALS: Ht 188 cm; Wt 113.5 kg
[~2020-01-05] MED LIST changes: +DIAZEPAM 5 MG5 M1 PO
--- NOTE | ~2020-01-05 | HPC ---
[facility] [address] [place] [address] PAIN MANAGEMENT CONSULTATION Name: MAURICE SIU Room #: REG EMILY CoombsBenji.#: [id number] Admission: 01/05/20 Attend Phys: Anthony Velasquez MD Discharge: Date of : 57 Report #: [id number] THIS REPORT FOR: cc: Luis E Hector MD, Scott R. MD Morgan,Anthony Raymundo MD ~ CC: Anthony Hector DATE OF SERVICE: 01/05/2020 CHIEF COMPLAINT: Neck pain radiating into the right arm, cervical radiculopathy. The patient returns to pain clinic today in followup. He has longstanding cervical radiculopathy, has responded beautifully to epidural injections performed no more than 3 times to 4 times a year. I have been treating him dating back about 4-1/2 to 5 years now. Typically, he returns to the pain clinic for injection and is off. He continues to report that his pain relief is fairly quick and substantial after the injection and last months at a time. We have an MRI, but it is a bit dated. I did not plan on ordering another MRI unless there were changes in his symptoms or response to the injections. He has multilevel degenerative changes. We have had quite a time with insurance. He changed from his prior insurance at [employer] to a [employer] Blue [employer] product and my staff spent literally hours trying to preauthorize him for this helpful injection. Ultimately, I asked for a [id number] and spoke with Dr. Roman. He was quite rigid and despite a thorough explanation of my treatment plan reported that he would not deviate from his requirement, which is to only allow a cervical epidural injection if a new MRI was ordered and received. I have ordered the MRI and he has it scheduled for next Thursday. We will see if this changes our treatment options. We did discuss the possibility of a surgical intervention, which he is steadfastly against at this point in time. He is uncomfortable today, scores his pain as 8-9/10. Pain radiates from his neck down into his arms. He does get some relief from half a tablet of oxycodone and uses it infrequently, not even daily, so I am willing to continue providing that for him. We certainly would like to continue using injections, so he does not become more reliant on opioids. PHYSICAL EXAMINATION: GENERAL: He is a pleasant gentleman, 6 feet 2 inches, 250, BMI 32.1. VITAL SIGNS: Blood pressure 101/64, heart rate 88, respirations 16, O2 sat 98. HEENT: Normal. [address] [address] PAIN MANAGEMENT CONSULTATION Name: MAURICE SIU Room #: REG EMILY Qiu#: [id number] Admission: 01/05/20 Attend Phys: Anthony Velasquez MD Discharge: Date of : 57 Report #: [id number] NECK: Remains supple. He has some pain with lateral tilt to the affected side on the right and with rotational movements. There is a positive Spurling's test, radiating pain into the right arm. CHEST: Clear. CARDIAC: Rhythm is regular. MUSCULOSKELETAL: Examination of reflexes reveals biceps, triceps and brachioradialis reflexes to be 1-2+ in both arms. In the lower extremities, he has 2-3+ knee jerk reflex and the Achilles reflex is diminished to trace bilaterally and symmetrical. He smells a bit of tobacco and reports the use of 1 pack of cigarettes per day. IMPRESSION: Cervical radiculopathy. PLAN: 1. We will go ahead and get the MRI as mandated by his insurance company. 2. Return off of his Coumadin with an INR under 1.5 to repeat this helpful procedure, the epidural steroid injection at C6-C7. By: 1418 1533 Anthony Velasquez MD /nt
[2020-01-05 13:30] VITALS: BP 101/64
--- NOTE | 2020-01-05 13:38 | NUR ---
Pain Clinic Assessment: 1. History of Osteoarthritis: Left Lower Extremity Right Lower Extremity History of Rheumatoid Arthritis: Not Applicable 2. Height: 6 ft. 2 in. 188.0 cm. Weight: 250.2 lb. oz. 113.490 kg. Patient's BMI: 32.1 3. Vital Signs: BP: 101/64 Pulse: 88 Resp: 16 Temp: 02 Sat: 98 ECG Mon: 4. Pain Intensity: 8-9 5. Fall Risk: Dizziness: N Needs help standing or walking: N Fallen in the last 3 months: N Fall risk comments: 6. Patient on Blood Thinner: Warfarin (Coumadin) 7. History of Hypertension: Y 8. Opioid Therapy greater than 6 weeks: Y Opiate Contract Signed: 09/21/17 9. Risk Assessment Tool Provided: LOW RISK 0/3 10. Functional Assessment Tool: 11. Recreational Drug Use: Never Drug Type: Tobacco Use: Current Every Day Smoker Tobacco Type: Cigarettes Amount or Packs/day: 1/2 PPD How Many Years: Alcohol Use: No Frequency: Quant:
== END ==
LOC: PAIN 06:57
PROVIDERS: ATTEND Anesthesiology Pain Medicine
DX: M54.12 Radiculopathy, cervical region (principal); M79.601 Pain in right arm

== ENCOUNTER → 2020-01-16 | Outpatient (CLI) | payer BC, OTHER ==
[~2020-01-16] VITALS: Ht 188 cm; Wt 113.9 kg
--- NOTE | ~2020-01-16 | HPC ---
[facility] [email or web address] [address] PAIN MANAGEMENT CONSULTATION Name: MAURICE SIU Room #: REG CLDani Dary.#: [id number] Admission: 01/16/20 Attend Phys: Anthony Velasquez MD Discharge: Date of : 57 Report #: [id number] CC: Anthony Hector DATE OF SERVICE: 01/16/2020 Followup visit for cervical radiculopathy. After much effort, we have finally gotten the patient back to the clinic for cervical epidural injection. We were required by the insurance company to repeat the MRI. I have had a chance to review it. It shows that there are degenerative changes predominantly in the facet joints resulting in multilevel neural foraminal narrowing. There is no central stenosis, which is fortunate and we did not expect to see that. His symptoms are likely related to neural foraminal narrowing, particularly on the right, which is most prominent at C4-C5, C5-C6. Prior injections have provided relief generally within a few days. I reviewed the procedure with him and potential risks and benefits. There have been no significant changes in his pain and it continues to be quite bothersome with an intensity of 8-9/10. PHYSICAL EXAMINATION: Today, blood pressure 99/69, heart rate 85, respirations 16, O2 sat 99, 6 feet 2 inches, BMI is 32.2. Pain in his neck is noted. Continues to have pain with flexion and extension, both radiating pain into the right arm and hand. There is a positive Spurling's test, radiating into the right arm. IMPRESSION: Cervical radiculopathy. PROCEDURE: C6-C7 cervical epidural steroid injection under fluoroscopic guidance. After informed consent, he was taken to the fluoroscopic suite, placed prone, skin prepped with ChloraPrep. Skin anesthetized over C6-C7. A 20-gauge Tuohy epidural needle advanced first attempt into the epidural space with loss of resistance. There was no blood or CSF aspirated. A 1 mL of Omnipaque was injected. Good spread of dye observed extending into the epidural space in both cephalad and caudad distribution. It was then followed by 3 mL of 0.5% lidocaine mixed with 80 mg of triamcinolone. He tolerated the procedure well and there were no complications. Followup visit planned as needed. Medications were ordered as necessary. He is very careful and cautious about using any medications for chronic pain. By: [id number] Anthony Velasquez MD /nt
[2020-01-16 14:46] VITALS: BP 99/69
--- NOTE | 2020-01-16 14:49 | NUR ---
Pain Clinic Assessment: 1. History of Osteoarthritis: Left Lower Extremity Right Lower Extremity History of Rheumatoid Arthritis: Not Applicable 2. Height: 6 ft. 2 in. 188.0 cm. Weight: 251.0 lb. oz. 113.853 kg. Patient's BMI: 32.2 3. Vital Signs: BP: 99/69 Pulse: 85 Resp: 16 Temp: 02 Sat: 99 ECG Mon: 4. Pain Intensity: 8-9 5. Fall Risk: Dizziness: N Needs help standing or walking: N Fallen in the last 3 months: N Fall risk comments: 6. Patient on Blood Thinner: Warfarin (Coumadin) 7. History of Hypertension: Y 8. Opioid Therapy greater than 6 weeks: Y Opiate Contract Signed: 09/21/17 9. Risk Assessment Tool Provided: LOW RISK 0/3 10. Functional Assessment Tool: 11. Recreational Drug Use: Never Drug Type: Tobacco Use: Current Every Day Smoker Tobacco Type: Amount or Packs/day: How Many Years: Alcohol Use: No Frequency: Quant:
[2020-01-16 15:29] LABS: INR 1.1; PROTIME 11.2 Seconds (9.3-11.4)
== END ==
LOC: PAIN 07:08
PROVIDERS: ATTEND Anesthesiology Pain Medicine
DX: M54.12 Radiculopathy, cervical region (principal); M19.90 Unspecified osteoarthritis, unspecified site; I10 Essential (primary) hypertension; F17.210 Nicotine dependence, cigarettes, uncomplicated; Z79.899 Other long term (current) drug therapy; Z88.8 Allergy status to other drugs, medicaments and biological substances

== ENCOUNTER → 2020-08-09 | Outpatient (CLI) | payer BC, OTHER ==
[~2020-08-09] VITALS: Ht 188 cm; Wt 111.8 kg
[2020-08-09 14:06] VITALS: BP 107/68
--- NOTE | 2020-08-09 14:17 | NUR ---
Notify MD and infection Prevention STANDARD and CONTACT and DROPLET and EYE PROTECTION. N95 and negative pressure for aerosolizing procedures.
--- NOTE | 2020-08-09 14:17 | NUR ---
Pain Clinic Assessment: 1. History of Osteoarthritis: Left Lower Extremity Right Lower Extremity History of Rheumatoid Arthritis: Not Applicable 2. Height: 6 ft. 2 in. 188.0 cm. Weight: 246.4 lb. oz. 111.767 kg. Patient's BMI: 31.6 3. Vital Signs: BP: 107/68 Pulse: 85 Resp: 16 Temp: 02 Sat: 97 ECG Mon: 4. Pain Intensity: 8 5. Fall Risk: Dizziness: N Needs help standing or walking: N Fallen in the last 3 months: Y Fall risk comments: 6. Patient on Blood Thinner: Warfarin (Coumadin) 7. History of Hypertension: Y 8. Opioid Therapy greater than 6 weeks: Y Opiate Contract Signed: 09/21/17 9. Risk Assessment Tool Provided: LOW RISK 0/3 10. Functional Assessment Tool: 11. Recreational Drug Use: Never Drug Type: Tobacco Use: Current Every Day Smoker Tobacco Type: Cigarettes Amount or Packs/day: 1/2 PPD How Many Years: Alcohol Use: No Frequency: Quant:
== END ==
LOC: PAIN 13:11
PROVIDERS: ATTEND Anesthesiology Pain Medicine
DX: M54.12 Radiculopathy, cervical region (principal); I10 Essential (primary) hypertension; F17.200 Nicotine dependence, unspecified, uncomplicated; Z79.01 Long term (current) use of anticoagulants; Z79.899 Other long term (current) drug therapy; Z79.891 Long term (current) use of opiate analgesic; Z88.1 Allergy status to other antibiotic agents

== ENCOUNTER → 2020-08-16 | Outpatient (CLI) | payer BC, OTHER ==
[~2020-08-16] VITALS: Ht 188 cm; Wt 111.6 kg
[~2020-08-16] MED LIST changes: +ENDOCET 5-3251 EACH PO; +FLEXERIL PO
[2020-08-16 11:17] LABS: INR 1.09; PROTIME 11.8 Seconds (10.5-12.1)
[2020-08-16 15:23] VITALS: BP 108/78
--- NOTE | 2020-08-16 15:38 | NUR ---
Pain Clinic Assessment: 1. History of Osteoarthritis: Left Lower Extremity Right Lower Extremity History of Rheumatoid Arthritis: Not Applicable 2. Height: 6 ft. 2 in. 188.0 cm. Weight: 246.0 lb. oz. 111.585 kg. Patient's BMI: 31.6 3. Vital Signs: BP: 108/78 Pulse: 97 Resp: 16 Temp: 02 Sat: 97 ECG Mon: 4. Pain Intensity: 8 5. Fall Risk: Dizziness: N Needs help standing or walking: N Fallen in the last 3 months: N Fall risk comments: 6. Patient on Blood Thinner: Warfarin (Coumadin) 7. History of Hypertension: Y 8. Opioid Therapy greater than 6 weeks: Y Opiate Contract Signed: 09/21/17 9. Risk Assessment Tool Provided: LOW RISK 0/3 10. Functional Assessment Tool: 11. Recreational Drug Use: Never Drug Type: Tobacco Use: Current Every Day Smoker Tobacco Type: Cigarettes Amount or Packs/day: 1/2 How Many Years: Alcohol Use: No Frequency: Quant:
== END | disposition home or self-care (01) ==
LOC: PAIN 10:40
PROVIDERS: ATTEND Anesthesiology Pain Medicine
DX: M54.12 Radiculopathy, cervical region (principal); G89.29 Other chronic pain; M19.90 Unspecified osteoarthritis, unspecified site; I10 Essential (primary) hypertension; F17.210 Nicotine dependence, cigarettes, uncomplicated; Z98.890 Other specified postprocedural states; Z79.899 Other long term (current) drug therapy; Z79.01 Long term (current) use of anticoagulants; Z88.8 Allergy status to other drugs, medicaments and biological substances

== ENCOUNTER → 2020-11-29 | Outpatient (CLI) | payer BC, OTHER ==
[~2020-11-29] VITALS: Ht 188 cm; Wt 112.0 kg
[2020-11-29 14:31] VITALS: BP 129/84
--- NOTE | 2020-11-29 14:43 | NUR ---
Pain Clinic Assessment: 1. History of Osteoarthritis: Left Lower Extremity Right Lower Extremity History of Rheumatoid Arthritis: Not Applicable 2. Height: 6 ft. 2 in. 188.0 cm. Weight: 247.0 lb. oz. 112.039 kg. Patient's BMI: 31.7 3. Vital Signs: BP: 129/84 Pulse: 91 Resp: 16 Temp: 02 Sat: 97 ECG Mon: 4. Pain Intensity: 6-7 5. Fall Risk: Dizziness: N Needs help standing or walking: N Fallen in the last 3 months: N Fall risk comments: 6. Patient on Blood Thinner: Warfarin (Coumadin) 7. History of Hypertension: Y 8. Opioid Therapy greater than 6 weeks: Y Opiate Contract Signed: 09/21/17 9. Risk Assessment Tool Provided: LOW RISK 0/3 10. Functional Assessment Tool: 11. Recreational Drug Use: Never Drug Type: Tobacco Use: Current Every Day Smoker Tobacco Type: Cigarettes Amount or Packs/day: 1/2 How Many Years: Alcohol Use: No Frequency: Quant:
== END ==
LOC: PAIN 13:45
PROVIDERS: ATTEND Anesthesiology Pain Medicine
DX: M47.22 Other spondylosis with radiculopathy, cervical region (principal); M48.02 Spinal stenosis, cervical region; Z88.8 Allergy status to other drugs, medicaments and biological substances; Z79.899 Other long term (current) drug therapy; Z79.891 Long term (current) use of opiate analgesic; Z79.01 Long term (current) use of anticoagulants

== ENCOUNTER → 2020-12-10 | Outpatient (CLI) | payer BC, OTHER ==
[~2020-12-10] VITALS: Ht 188 cm; Wt 116.6 kg
[~2020-12-10] MED LIST changes: +PERCOCET 5-3251 EACH PO
[2020-12-10 11:37] LABS: INR 1.08; PROTIME 11.7 Seconds (10.5-12.1)
[2020-12-10 13:58] VITALS: BP 142/79
--- NOTE | 2020-12-10 14:01 | NUR ---
Pain Clinic Assessment: 1. History of Osteoarthritis: Left Lower Extremity Right Lower Extremity History of Rheumatoid Arthritis: Not Applicable 2. Height: 6 ft. 2 in. 188.0 cm. Weight: 257.0 lb. oz. 116.575 kg. Patient's BMI: 33.0 3. Vital Signs: BP: 142/79 Pulse: 87 Resp: 18 Temp: 02 Sat: 96 ECG Mon: 4. Pain Intensity: 6.5 5. Fall Risk: Dizziness: N Needs help standing or walking: N Fallen in the last 3 months: N Fall risk comments: 6. Patient on Blood Thinner: Warfarin (Coumadin) 7. History of Hypertension: Y 8. Opioid Therapy greater than 6 weeks: Y Opiate Contract Signed: 09/21/17 9. Risk Assessment Tool Provided: LOW RISK 0 10. Functional Assessment Tool: 11. Recreational Drug Use: Never Drug Type: Tobacco Use: Current Every Day Smoker Tobacco Type: Amount or Packs/day: How Many Years: Alcohol Use: No Frequency: Quant:
== END | disposition home or self-care (01) ==
LOC: PAIN 12-08 13:30
PROVIDERS: ATTEND Anesthesiology Pain Medicine
DX: M54.12 Radiculopathy, cervical region (principal); G89.29 Other chronic pain; M19.90 Unspecified osteoarthritis, unspecified site; I10 Essential (primary) hypertension; F17.210 Nicotine dependence, cigarettes, uncomplicated; Z98.890 Other specified postprocedural states; Z79.899 Other long term (current) drug therapy; Z88.8 Allergy status to other drugs, medicaments and biological substances

== ENCOUNTER → 2021-04-08 | Outpatient (CLI) | payer BC, OTHER ==
[~2021-04-08] VITALS: Ht 188 cm; Wt 116.0 kg
[2021-04-08 14:22] VITALS: BP 109/70
--- NOTE | 2021-04-08 14:34 | NUR ---
Pain Clinic Assessment: 1. History of Osteoarthritis: Left Lower Extremity Right Lower Extremity History of Rheumatoid Arthritis: Not Applicable 2. Height: 6 ft. 2 in. 188.0 cm. Weight: 255.8 lb. oz. 116.030 kg. Patient's BMI: 32.8 3. Vital Signs: BP: 109/70 Pulse: 84 Resp: 20 Temp: 02 Sat: 96 ECG Mon: 4. Pain Intensity: 7 5. Fall Risk: Dizziness: N Needs help standing or walking: N Fallen in the last 3 months: N Fall risk comments: 6. Patient on Blood Thinner: Warfarin (Coumadin) 7. History of Hypertension: Y 8. Opioid Therapy greater than 6 weeks: Y Opiate Contract Signed: 09/21/17 9. Risk Assessment Tool Provided: LOW RISK 0 10. Functional Assessment Tool: 11. Recreational Drug Use: Never Drug Type: Tobacco Use: Current Every Day Smoker Tobacco Type: Cigarettes Amount or Packs/day: 1/2 PACK How Many Years: Alcohol Use: No Frequency: Quant:
== END ==
LOC: PAIN 10:44
PROVIDERS: ATTEND Anesthesiology Pain Medicine
DX: M54.12 Radiculopathy, cervical region (principal); Z79.899 Other long term (current) drug therapy; Z88.8 Allergy status to other drugs, medicaments and biological substances; Z88.5 Allergy status to narcotic agent; Z68.32 Body mass index [BMI] 32.0-32.9, adult; M19.90 Unspecified osteoarthritis, unspecified site; I10 Essential (primary) hypertension; F17.200 Nicotine dependence, unspecified, uncomplicated

== ENCOUNTER → 2021-05-16 | Outpatient (CLI) | payer BC, OTHER ==
[~2021-05-16] VITALS: Ht 188 cm; Wt 119.8 kg
[2021-05-16 10:10] LABS: INR 1.03; PROTIME 11.2 Seconds (10.5-12.1)
[2021-05-16 13:46] VITALS: BP 132/81
--- NOTE | 2021-05-16 13:55 | NUR ---
Pain Clinic Assessment: 1. History of Osteoarthritis: Left Lower Extremity Right Lower Extremity History of Rheumatoid Arthritis: Not Applicable 2. Height: 6 ft. 2 in. 188.0 cm. Weight: 264.0 lb. oz. 119.750 kg. Patient's BMI: 33.9 3. Vital Signs: BP: 132/81 Pulse: 82 Resp: 20 Temp: 02 Sat: 96 ECG Mon: 4. Pain Intensity: 8 5. Fall Risk: Dizziness: N Needs help standing or walking: N Fallen in the last 3 months: N Fall risk comments: 6. Patient on Blood Thinner: Warfarin (Coumadin) 7. History of Hypertension: Y 8. Opioid Therapy greater than 6 weeks: Y Opiate Contract Signed: 09/21/17 9. Risk Assessment Tool Provided: LOW RISK 0 10. Functional Assessment Tool: 11. Recreational Drug Use: Never Drug Type: Tobacco Use: Current Every Day Smoker Tobacco Type: Amount or Packs/day: How Many Years: Alcohol Use: No Frequency: Quant:
== END | disposition home or self-care (01) ==
LOC: PAIN 04-25 10:14
PROVIDERS: ATTEND Anesthesiology Pain Medicine
DX: M54.12 Radiculopathy, cervical region (principal); G89.29 Other chronic pain; M19.90 Unspecified osteoarthritis, unspecified site; I10 Essential (primary) hypertension; F17.210 Nicotine dependence, cigarettes, uncomplicated; Z98.890 Other specified postprocedural states; Z79.899 Other long term (current) drug therapy; Z79.01 Long term (current) use of anticoagulants; Z88.8 Allergy status to other drugs, medicaments and biological substances